=== PATIENT | female | born 1970 | race Caucasian/White ===

== ENCOUNTER 2016-11-26 08:45 | Emergency (ER) | payer MEDICAID ==
[2016-11-26 08:46] VITALS: BMI 27.4
[2016-11-26 09:15] VITALS: TEMP 98.2
[2016-11-26] MEDS ORDERED: Sodium Chloride 0.9% 1,000 ML IV STA (09:49)
--- NOTE | 2016-11-26 10:02 | ED PDOC ---
Arrival/HPI - General Chief Complaint: Lower Extremity Problem/Injury Time Seen by Provider: 11/26/16 09:49 Historian: Patient - History of Present Illness Narrative History of Present Illness (Text): 11/26/16 10:02 A 46 year old female presents to the emergency department complaining of progressively worsening left lower extremity swelling for 3 months. Patient reports pain, with no relieving or exacerbating factors. Patient was seen by PMD yesterday and referred to get a venous duplex ultrasound and abdominal CT with IV contrast. Patient states she did not want to wait and came into the emergency room today for further evaluation. Patient denies any fever, chills, nausea, vomiting, abdominal pain, chest pain, shortness of breath or any other complaints. Time/Duration: Other (3 months) Symptom Course: Worsening Quality: Other Context: Home Past Medical History - Provider Review Nursing Documentation Reviewed: Yes - Infectious Disease Hx of Infectious Diseases: None - Past Medical History Past Medical History: No Previous - Cardiac Hx Cardiac Disorders: No - Pulmonary Hx Respiratory Disorders: No - Neurological Hx Neurological Disorder: No - HEENT Hx HEENT Disorder: No - Renal Hx Renal Disorder: No - Endocrine/Metabolic Hx Endocrine Disorders: No - Hematological/Oncological Hx Blood Transfusions: No Hx Blood Transfusion Reaction: No - Integumentary Hx Dermatological Disorder: No - Musculoskeletal/Rheumatological Hx Musculoskeletal Disorders: No - Gastrointestinal Hx Gall Bladder Disease: Yes (on present admission) - Genitourinary/Gynecological Hx Genitourinary Disorders: No - Psychiatric Hx Psychophysiologic Disorder: No Hx Substance Use: No - Past Surgical History Past Surgical History: No Previous - Surgical History Hx Cholecystectomy: Yes - Anesthesia Hx Anesthesia: No Hx Anesthesia Reactions: No Hx Malignant Hyperthermia: No - Suicidal Assessment Feels Threatened In Home Enviroment: No Family/Social History - Physician Review Nursing Documentation Reviewed: Yes Family/Social History: No Known Family HX Smoking Status: Never Smoked Hx Alcohol Use: No Hx Substance Use: No Hx Substance Use Treatment: No Allergies/Home Meds Allergies/Adverse Reactions: Allergies No Known Allergies Allergy (Verified 11/26/16 09:09) Home Medications: Home Meds Medication Instructions Recorded Confirmed No Known Home Med 01/14/12 11/26/16 Review of Systems - Physician Review All systems were reviewed & negative as marked: Yes - Review of Systems Constitutional: absent: Fevers, Night Sweats Respiratory: absent: SOB Cardiovascular: absent: Chest Pain Gastrointestinal: absent: Abdominal Pain, Nausea, Vomiting Musculoskeletal: Other (Left lower extemity swelling and pain) Physical Exam Vital Signs Reviewed: Yes Vital Signs Temp Pulse Resp BP Pulse Ox 11/26/16 15:29 65 17 121/78 99 11/26/16 13:30 68 17 120/81 98 11/26/16 11:17 70 17 118/75 98 11/26/16 09:11 98.2 F 72 16 113/77 97 Temperature: Afebrile Blood Pressure: Normal Pulse: Regular Respiratory Rate: Normal Appearance: Positive for: Well-Appearing, Non-Toxic, Comfortable Pain Distress: None Mental Status: Positive for: Alert and Oriented X 3 - Systems Exam Head: Present: Atraumatic, Normocephalic Pupils: Present: PERRL Extroacular Muscles: Present: EOMI Conjunctiva: Present: Normal Mouth: Present: Moist Mucous Membranes Pharnyx: No: ERYTHEMA Neck: Present: Normal Range of Motion Respiratory/Chest: Present: Clear to Auscultation, Good Air Exchange. No: Respiratory Distress, Accessory Muscle Use Cardiovascular: Present: Regular Rate and Rhythm, Normal S1, S2. No: Murmurs Abdomen: Present: Tenderness (Tenderness to left suprapubic area), Normal Bowel Sounds. No: Distention, Peritoneal Signs, Rebound, Guarding Back: Present: Normal Inspection Upper Extremity: Present: Edema (bilateral lower extremity edema, left more than right). No: Cyanosis Lower Extremity: Present: Normal Inspection. No: Edema Neurological: Present: GCS=15, CN II-XII Intact, Speech Normal Skin: Present: Warm, Dry, Normal Color. No: Rashes Psychiatric: Present: Alert, Oriented x 3, Normal Insight, Normal Concentration Medical Decision Making ED Course and Treatment: 11/26/16 10:02 Impression: A 46 year old female with bilateral lower extremity swelling, left worse than right. Plan: -- Abdomen and pelvis CT -- Duplex lower extremity ultrasound -- Labs -- Urinalysis -- IV fluids -- Reassess and disposition Progress Notes: On re-evaluation patient is stable, not in acute distress. Case was d/w pt's PMD who instructed to d/c patient on pain meds with f/u in his office within 1-2 days. 11/26/16 14:51 - Lab Interpretations Lab Results: 11/26/16 10:05 11/26/16 10:05 Lab Results 11/26/16 10:55: PT 11.4, INR 1.06, APTT 28.2 11/26/16 10:05: Sodium 141, Potassium 4.0, Chloride 105, Carbon Dioxide 27, Anion Gap 13, BUN 11, Creatinine 0.8, Est GFR ( Amer) > 60, Est GFR (Non- Af Amer) > 60, Random Glucose 92, Calcium 8.7, Total Bilirubin 0.4, AST 25, ALT 25, Alkaline Phosphatase 52, Total Protein 6.8, Albumin 3.9, Globulin 2.9, Albumin/Globulin Ratio 1.3, Lipase 57 11/26/16 10:05: Urine Color Yellow, Urine Appearance Clear, Urine pH 6.0, Ur Specific [place] 1.010, Urine Protein Negative, Urine Glucose (UA) Negative, Urine Ketones Negative, Urine Blood Trace-intact H, Urine Nitrate Negative, Urine Bilirubin Negative, Urine Urobilinogen 0.2, Ur Leukocyte Esterase Negative , Urine RBC 0 - 2, Urine WBC 0 - 2, Ur Epithelial Cells 0 - 2, Urine HCG, Qual Negative 11/26/16 10:05: WBC 5.4, RBC 4.39, Hgb 11.6 L, Hct 36.1, MCV 82.2, MCH 26.4, MCHC 32.1, RDW 13.5, Plt Count 221, MPV 11.4 H, Gran % 60.5, Lymph % (Auto) 29.2 , [place] % (Auto) 7.3 H, Eos % (Auto) 2.6, Baso % (Auto) 0.4, Gran # 3.25, Lymph # 1.6, [place] # 0.4, Eos # 0.1, Baso # 0.02 I have reviewed the lab results: Yes - RAD Interpretation Narrative RAD Interpretations (Text): 11/26/16 14:37 PROCEDURE: Bilateral lower extremity venous duplex Doppler. HISTORY: extremity swelling COMPARISON: None available. TECHNIQUE: Bilateral common femoral, superficial femoral, popliteal and posterior tibial veins were evaluated. Flow was assessed with color Doppler, compressibility, assessment of phasic flow and augmentation response. FINDINGS: COMMON FEMORAL VEIN: Right CFV: Unremarkable. Left CFV: Unremarkable. SUPERFICIAL FEMORAL VEIN: Right SFV: Unremarkable. Left SFV: Unremarkable. POPLITEAL VEIN: Right Popliteal: Unremarkable. Left Popliteal: Unremarkable. POSTERIOR TIBIAL VEIN: Right PTV: Unremarkable. Left PTV: Unremarkable. OTHER FINDINGS: None. IMPRESSION: No evidence of deep venous thrombosis. PROCEDURE: CT Abdomen and Pelvis with contrast HISTORY: LLQ tenderness, LLE swelling COMPARISON: None. TECHNIQUE: Contrast dose: 100 mL Omnipaque 350 Radiation dose: Total exam DLP = mGy-cm. This CT exam was performed using one or more of the following dose reduction techniques: Automated exposure control, adjustment of the mA and/or kV according to patient size, and/or use of iterative reconstruction technique. FINDINGS: LOWER THORAX: Linear scar or atelectasis in the right middle lobe and in the lingula. Very small hiatal hernia noted. LIVER: Unremarkable. No gross lesion or ductal dilatation. GALLBLADDER AND BILE DUCTS: Status post cholecystectomy PANCREAS: Unremarkable. No gross lesion or ductal dilatation. SPLEEN: Unremarkable. ADRENALS: Unremarkable. No mass. KIDNEYS AND URETERS: Bilateral very small cortical cysts, largest 10 mm upper pole right kidney. VASCULATURE: Unremarkable. No aortic aneurysm. BOWEL: Diverticulosis of the descending and sigmoid colon without evidence of diverticulitis. No other abnormal bowel loops are identified. No evidence of bowel obstruction. APPENDIX: Normal appendix. PERITONEUM: Unremarkable. No free fluid. No free air. LYMPH NODES: Unremarkable. No enlarged lymph nodes. BLADDER: Poorly distended bladder. Mild diffuse mural thickening. Though this may be artifact due to lack of adequate distention, please correlate with urinalysis to rule out cystitis. REPRODUCTIVE: Unremarkable uterus. BONES: No acute fracture. OTHER FINDINGS: None. IMPRESSION: Diverticulosis of the descending and sigmoid colon. No evidence of diverticulitis. Very small hiatal hernia. Mild thickening of bladder wall. This may be artifact due to poor bladder distention. Please correlate with urinalysis to rule out cystitis. Additional minor findings as above. Radiology Orders: 11/26/16 09:49 ABD PELVIS PO & IV CONTRAST [CT] Stat 11/26/16 09:51 DUPLEX LOWER EXTRM VEIN BILAT [US] Stat - Medication Orders Current Medication Orders: Discontinued Medications Sodium Chloride (Sodium Chloride 0.9%) 1,000 mls @ 1,000 mls/hr IV .Q1H STA Stop: 10/12/17 10:48 Last Admin: 11/26/16 10:17 Dose: 1,000 mls/hr eMAR Start Stop Document 11/26/16 10:17 SF (Rec: 11/26/16 10:17 [id number]) Intravenous Solution Start Date 11/26/16 Start Time 10:17 End Date 11/26/16 End time 11:17 Total Infusion Time 60 - Scribe Statement The provider has reviewed the documentation as recorded by the Tobiasibluan Fonseca Provider Scribe Attestation: All medical record entries made by the Scribe were at my direction and personally dictated by me. I have reviewed the chart and agree that the record accurately reflects my personal performance of the history, physical exam, medical decision making, and the department course for this patient. I have also personally directed, reviewed, and agree with the discharge instructions and disposition. Disposition/Present on Arrival - Present on Arrival Any Indicators Present on Arrival: No History of DVT/PE: No History of Uncontrolled Diabetes: No Urinary Catheter: No History of Decub. Ulcer: No History Surgical Site Infection Following: None - Disposition Have Diagnosis and Disposition been Completed?: Yes Diagnosis: Swelling of lower extremity Disposition: HOME/ ROUTINE Disposition Time: 14:53 Patient Plan: Discharge Condition: STABLE Discharge Instructions (ExitCare): Leg Edema (ED) Prescriptions: traMADol/Acetaminophen [Ultracet 325 MG-37.5 MG] 1 tab PO Q6 PRN #30 tab PRN Reason: Pain Referrals: PCP,NO [Non-Staff] - Follow up with primary Forms: [employer] (Estonian)
[2016-11-26] MEDS ORDERED: Iohexol 240 (50 ml) ONE (10:18)
[2016-11-26 10:43] LABS: BASO # 0.02 K/mm3 (0.0-2.0); BASO % 0.4 % (0.0-3.0); EOS # 0.1 (0.0-0.7); EOS % 2.6 % (1.5-5.0); GRAN # 3.25 (1.4-6.5); GRAN % 60.5 % (50.0-68.0); HEMATOCRIT 36.1 % (36.0-48.0); LYMPH # 1.6 (1.2-3.4); LYMPH % 29.2 % (22.0-35.0); MEAN CELL VOLUME 82.2 fl (80.0-105.0); MEAN CORPUSCULAR HEMOGLOBIN 26.4 pg (25.0-35.0); MEAN CORPUSCULAR HGB CONC 32.1 g/dl (31.0-37.0); MEAN PLATELET VOLUME 11.4 fl (7.0-11.0); MONO # 0.4 (0.1-0.6); MONO % 7.3 % (1.0-6.0); RED CELL DISTRIBUTION WIDTH 13.5 % (11.5-14.5); WHITE BLOOD COUNT 5.4 10^3/ul (4.5-11.0)
[2016-11-26 10:45] LABS: URINE BILIRUBIN NEGATIVE (NEGATIVE); URINE BLOOD TRACE-INTACT (NEGATIVE); URINE GLUCOSE (UA) NEGATIVE (NEGATIVE); URINE KETONE NEGATIVE (NEGATIVE); URINE LEUKOCYTE ESTERASE NEGATIVE Leu/uL (NEGATIVE); URINE PROTEIN NEGATIVE mg/dL (<30 mg/dL); URINE UROBILINOGEN 0.2 E.U./dL (<1 E.U./dL)
[2016-11-26 10:48] LABS: URINE APPEARANCE CLEAR (CLEAR); URINE COLOR YELLOW (YELLOW)
[2016-11-26 10:53] LABS: ALB/GLOB RATIO 1.3 (1.1-1.8); ALKALINE PHOSPHATASE 52 U/L (38-126); ALT/SGPT 25 U/L (7-56); AST/SGOT 25 U/L (14-36); BILIRUBIN,TOTAL 0.4 mg/dL (0.2-1.3); BLOOD UREA NITROGEN 11 mg/dL (7-21); CALCIUM 8.7 mg/dL (8.4-10.5); CARBON DIOXIDE 27 mmol/L (21-33); CHLORIDE 105 mmol/L (98-107); GFR AFRICAN-AMERICAN > 60; GLUCOSE,RANDOM 92 mg/dL (70-110); LIPASE 57 U/L (23-300); SODIUM 141 mmol/L (132-148); TOTAL PROTEIN 6.8 g/dL (5.8-8.3); URINE EPITHELIAL CELLS 0 - 2 /hpf (0-5); URINE RBC 0 - 2 /hpf (0-2); URINE WBC 0 - 2 /hpf (0-6)
[2016-11-26 10:59] LABS: INR 1.06 (0.93-1.08); PARTIAL THROMBOPLASTIN TIME 28.2 Seconds (23.7-30.8)
[2016-11-26] MEDS ORDERED: Iohexol 350 MG/100 ML VIAL ONE (11:14)
[2016-11-26 11:18] VITALS: RESP 17
--- NOTE | 2016-11-26 13:32 | US ---
PROCEDURE: Bilateral lower extremity venous duplex Doppler. HISTORY: extremity swelling COMPARISON: None available. TECHNIQUE: Bilateral common femoral, superficial femoral, popliteal and posterior tibial veins were evaluated. Flow was assessed with color Doppler, compressibility, assessment of phasic flow and augmentation response. FINDINGS: COMMON FEMORAL VEIN: Right CFV: Unremarkable. Left CFV: Unremarkable. SUPERFICIAL FEMORAL VEIN: Right SFV: Unremarkable. Left SFV: Unremarkable. POPLITEAL VEIN: Right Popliteal: Unremarkable. Left Popliteal: Unremarkable. POSTERIOR TIBIAL VEIN: Right PTV: Unremarkable. Left PTV: Unremarkable. OTHER FINDINGS: None. IMPRESSION: No evidence of deep venous thrombosis.
--- NOTE | 2016-11-26 14:15 | CT ---
PROCEDURE: CT Abdomen and Pelvis with contrast HISTORY: LLQ tenderness, LLE swelling COMPARISON: None. TECHNIQUE: Contrast dose: 100 mL Omnipaque 350 Radiation dose: Total exam DLP = mGy-cm. This CT exam was performed using one or more of the following dose reduction techniques: Automated exposure control, adjustment of the mA and/or kV according to patient size, and/or use of iterative reconstruction technique. FINDINGS: LOWER THORAX: Linear scar or atelectasis in the right middle lobe and in the lingula. Very small hiatal hernia noted. LIVER: Unremarkable. No gross lesion or ductal dilatation. GALLBLADDER AND BILE DUCTS: Status post cholecystectomy PANCREAS: Unremarkable. No gross lesion or ductal dilatation. SPLEEN: Unremarkable. ADRENALS: Unremarkable. No mass. KIDNEYS AND URETERS: Bilateral very small cortical cysts, largest 10 mm upper pole right kidney. VASCULATURE: Unremarkable. No aortic aneurysm. BOWEL: Diverticulosis of the descending and sigmoid colon without evidence of diverticulitis. No other abnormal bowel loops are identified. No evidence of bowel obstruction. APPENDIX: Normal appendix. PERITONEUM: Unremarkable. No free fluid. No free air. LYMPH NODES: Unremarkable. No enlarged lymph nodes. BLADDER: Poorly distended bladder. Mild diffuse mural thickening. Though this may be artifact due to lack of adequate distention, please correlate with urinalysis to rule out cystitis. REPRODUCTIVE: Unremarkable uterus. BONES: No acute fracture. OTHER FINDINGS: None. IMPRESSION: Diverticulosis of the descending and sigmoid colon. No evidence of diverticulitis. Very small hiatal hernia. Mild thickening of bladder wall. This may be artifact due to poor bladder distention. Please correlate with urinalysis to rule out cystitis. Additional minor findings as above.
[2016-11-26 15:31] VITALS: BP 121/78; PULSE 65; O2SAT 99
== END 2016-11-26 15:34 | disposition home or self-care (01) ==
LOC: ED 08:45
DX: M79.89 Other specified soft tissue disorders (principal)
CPT/HCPCS: 74177; 80053; 81001; 83690; 84703; 85025; 85610; 85730; 93970; 96360; 99285; J7040; Q9966; Q9967